=== PATIENT | female | born 1985 | race Caucasian/White ===

== ENCOUNTER 2016-11-20 07:32 | Emergency (ER) | payer OTHER ==
[2016-11-20] MEDS ORDERED: ONDANSETRON 4 MG/2 ML VIAL IVP STA (08:15)
[2016-11-20] MEDS ORDERED: SODIUM CHLORIDE 0.9% 1,000 ML IV STA ×2 (08:15)
[2016-11-20] MEDS ORDERED: DICYCLOMINE 10 MG/ML 2 ML AMP IM STA (08:16)
--- NOTE | 2016-11-20 08:24 | ED ---
General Adult HPI - General Chief complaint: Nausea/Vomiting/Diarrhea Stated complaint: vomiting Time Seen by Provider: 11/20/16 08:12 Source: patient, RN notes reviewed Mode of arrival: ambulatory Limitations: no limitations - History of Present Illness Initial comments: Patient 31-year-old female who presents emergency room today with a chief complaint of symptoms of nausea vomiting diarrhea that started approximate 4 days ago. She does admit that several people at work Similar symptoms. Patient denies any signs of blood in the stool or emesis. Does admit to feeling somewhat weak and run down. Patient does admit to abdominal pain located in the lower abdomen. Denies any other complaints or symptoms currently. Patient denies any recent fever, chills, shortness of breath, chest pain, back pain, numbness or tingling, dysuria or hematuria, constipation, headaches or visual changes, or any other complaints. - Related Data Home Medications Medication Instructions Recorded Confirmed Lisdexamfetamine Dimesylate 70 mg PO QAM 11/20/16 11/20/16 [Vyvanse] Previous Rx's Medication Instructions Recorded Dicyclomine [Bentyl] 20 mg PO QID #20 tablet 11/20/16 Ondansetron Odt [Zofran ODT] 4 mg PO Q8HR PRN #15 tab 11/20/16 Allergies Allergy/AdvReac Type Severity Reaction Status Date / Time No Known Allergies Allergy Verified 11/20/16 08:10 Review of Systems ROS Statement: Those systems with pertinent positive or pertinent negative responses have been documented in the HPI. ROS Other: All systems not noted in ROS Statement are negative. Past Medical History Past Medical History: No Reported History History of Any Multi-Drug Resistant Organisms: None Reported Past Surgical History: Tubal Ligation Past Psychological History: No Psychological Hx Reported Smoking Status: Current every day smoker Past Alcohol Use History: None Reported Past Drug Use History: None Reported General Exam - General Exam Comments Initial Comments: General: The patient is awake and alert, in no distress, and does not appear acutely ill. Eye: Pupils are equal, round and reactive to light, extra-ocular movements are intact. No nystagmus. There is normal conjunctiva bilaterally. No signs of icterus. Ears, nose, mouth and throat: There are moist mucous membranes and no oral lesions. Neck: The neck is supple, there is no tenderness or JVD. Cardiovascular: There is a regular rate and rhythm. No murmur, rub or gallop is appreciated. Respiratory: Lungs are clear to auscultation, respirations are non-labored, breath sounds are equal. No wheezes, stridor, rales, or rhonchi. Gastrointestinal: Normal appearance of the abdomen. Normal bowel sounds. Abdomen soft on palpation. Patient has mild tenderness lower abdomen and epigastric. No rebound tenderness. No guarding. No CVA tenderness. Musculoskeletal: Normal ROM, no tenderness. Strength 5/5. Sensation intact. Pulses equal bilaterally 2+. Neurological: A&O x 3. CN II-XII intact, There are no obvious motor or sensory deficits. Coordination appears grossly intact. Speech is normal. Skin: Skin is warm and dry and no rashes or lesions are noted. Psychiatric: Cooperative, appropriate mood & affect, normal judgment. Limitations: no limitations Course Vital Signs 11/20/16 07:34 Temperature 97.7 F Pulse Rate 72 Respiratory 16 Rate Blood Pressure 119/70 O2 Sat by Pulse 99 Oximetry Medical Decision Making - Medical Decision Making The patient's labs reviewed are unremarkable. Patient's x-ray is nonspecific. Patient feeling better after medications given here in the emergency room. Will be discharged home continued on Zofran and Bentyl for her symptoms. Advised increased fluids. Advised return if any symptoms increase or worsen or for any other concerns. - Lab Data Result diagrams: 11/20/16 08:23 11/20/16 08:23 Lab Results 11/20/16 11/20/16 11/20/16 Range/Units 08:23 08:23 08:23 WBC 7.7 (3.8-10.6) k/uL RBC 5.02 (3.80-5.40) m/uL Hgb 14.8 (11.4-16.0) gm/dL Hct 45.4 (34.0-46.0) % MCV 90.4 (80.0-100.0) fL MCH 29.6 (25.0-35.0) pg MCHC 32.7 (31.0-37.0) g/dL RDW 12.4 (11.5-15.5) % Plt Count 296 (150-450) k/uL Neutrophils % 63 % Lymphocytes % 28 % Monocytes % 6 % Eosinophils % 1 % Basophils % 1 % Neutrophils # 4.8 (1.3-7.7) k/uL Lymphocytes # 2.1 (1.0-4.8) k/uL Monocytes # 0.5 (0-1.0) k/uL Eosinophils # 0.1 (0-0.7) k/uL Basophils # 0.1 (0-0.2) k/uL Sodium 143 (137-145) mmol/L Potassium 4.2 (3.5-5.1) mmol/L Chloride 105 (98-107) mmol/L Carbon Dioxide 27 (22-30) mmol/L Anion Gap 11 mmol/L BUN 9 (7-17) mg/dL Creatinine 0.71 (0.52-1.04) mg/dL Est GFR (MDRD) Af Amer >60 (>60 ml/min/1.73 sqM) Est GFR (MDRD) Non-Af >60 (>60 ml/min/1.73 sqM) Glucose 90 (74-99) mg/dL Calcium 9.8 (8.4-10.2) mg/dL Total Bilirubin 0.3 (0.2-1.3) mg/dL AST 20 (14-36) U/L ALT 30 (9-52) U/L Alkaline Phosphatase 62 (38-126) U/L Total Protein 7.1 (6.3-8.2) g/dL Albumin 4.2 (3.5-5.0) g/dL Amylase 46 (30-110) U/L Lipase 157 (23-300) U/L Urine Color Urine Appearance (Clear) Urine pH (5.0-8.0) Ur Specific [place] (1.001-1.035) Urine Protein (Negative) Urine Glucose (UA) (Negative) Urine Ketones (Negative) Urine Blood (Negative) Urine Nitrate (Negative) Urine Bilirubin (Negative) Urine Urobilinogen (<2.0) mg/dL Ur Leukocyte Esterase (Negative) Ur Squamous Epith Cells (0-4) /hpf Urine Mucus (None) /hpf Urine HCG, Qual Not Detected (Not Detectd) 11/20/16 Range/Units 08:23 WBC (3.8-10.6) k/uL RBC (3.80-5.40) m/uL Hgb (11.4-16.0) gm/dL Hct (34.0-46.0) % MCV (80.0-100.0) fL MCH (25.0-35.0) pg MCHC (31.0-37.0) g/dL RDW (11.5-15.5) % Plt Count (150-450) k/uL Neutrophils % % Lymphocytes % % Monocytes % % Eosinophils % % Basophils % % Neutrophils # (1.3-7.7) k/uL Lymphocytes # (1.0-4.8) k/uL Monocytes # (0-1.0) k/uL Eosinophils # (0-0.7) k/uL Basophils # (0-0.2) k/uL Sodium (137-145) mmol/L Potassium (3.5-5.1) mmol/L Chloride (98-107) mmol/L Carbon Dioxide (22-30) mmol/L Anion Gap mmol/L BUN (7-17) mg/dL Creatinine (0.52-1.04) mg/dL Est GFR (MDRD) Af Amer (>60 ml/min/1.73 sqM) Est GFR (MDRD) Non-Af (>60 ml/min/1.73 sqM) Glucose (74-99) mg/dL Calcium (8.4-10.2) mg/dL Total Bilirubin (0.2-1.3) mg/dL AST (14-36) U/L ALT (9-52) U/L Alkaline Phosphatase (38-126) U/L Total Protein (6.3-8.2) g/dL Albumin (3.5-5.0) g/dL Amylase (30-110) U/L Lipase (23-300) U/L Urine Color Light Yellow Urine Appearance Cloudy H (Clear) Urine pH 6.5 (5.0-8.0) Ur Specific [place] 1.005 (1.001-1.035) Urine Protein Negative (Negative) Urine Glucose (UA) Negative (Negative) Urine Ketones Negative (Negative) Urine Blood Negative (Negative) Urine Nitrate Negative (Negative) Urine Bilirubin Negative (Negative) Urine Urobilinogen <2.0 (<2.0) mg/dL Ur Leukocyte Esterase Negative (Negative) Ur Squamous Epith Cells 8 H (0-4) /hpf Urine Mucus Rare H (None) /hpf Urine HCG, Qual (Not Detectd) Disposition Clinical Impression: Nausea vomiting and diarrhea Disposition: HOME SELF-CARE Condition: Good Instructions: Acute Nausea and Vomiting (ED), Acute Diarrhea (ED) Additional Instructions: Please use medication as prescribed. Please increase oral fluids. Please follow-up the family doctor over the next 2 days or return here to the emergency room if any symptoms increase worsen or for any other concerns. Prescriptions: Dicyclomine [Bentyl] 20 mg PO QID #20 tablet Ondansetron Odt [Zofran ODT] 4 mg PO Q8HR PRN #15 tab PRN Reason: Nausea Referrals: Fabiola Ruffin MD [Primary Care Provider] - 1-2 days Time of Disposition: 09:00
[2016-11-20 08:45] LABS: Basophils # (A) 0.1 k/uL (0-0.2); Basophils % (A) 1 %; CH 30.5; CHCM 33.9; Eosinophils # (A) 0.1 k/uL (0-0.7); Eosinophils % (A) 1 %; HCT 45.4 % (34.0-46.0); HDW 2.33; HGB 14.8 gm/dL (11.4-16.0); Luc # (Auto) 0.09; Luc % (Auto) 1; Lymphocytes # (A) 2.1 k/uL (1.0-4.8); Lymphocytes % (A) 28 %; MCH 29.6 pg (25.0-35.0); MCHC 32.7 g/dL (31.0-37.0); MCV 90.4 fL (80.0-100.0); Mean Platelet Volume 7.7; Monocytes # (A) 0.5 k/uL (0-1.0); Monocytes % (A) 6 %; Neutrophils # (A) 4.8 k/uL (1.3-7.7); Neutrophils % (A) 63 %; RBC 5.02 m/uL (3.80-5.40); RDW 12.4 % (11.5-15.5); WBC 7.7 k/uL (3.8-10.6); WBC (Perox) 7.61
[2016-11-20 08:49] LABS: Appearance,Urine Cloudy (Clear); Bilirubin,Urine Negative (Negative); Glucose,Urine (UA) Negative (Negative); Ketones,Urine Negative (Negative); Leukocyte Esterase,Urine Negative (Negative); Mucus,Urine Rare /hpf; Nitrite,Urine Negative (Negative); PH, Urine 6.5 (5.0-8.0); Particle Count 7021; Protein,Urine Negative (Negative); Specific Gravity,Urine 1.005 (1.001-1.035); Squamous Epithelial Cell,Urine 8 /hpf (0-4); UA Billing (MACRO vs. MICRO) MICRO; Urobilinogen,Urine <2.0 mg/dL (<2.0)
[2016-11-20 08:54] LABS: ALT 30 U/L (9-52); AST 20 U/L (14-36); Alkaline Phosphatase 62 U/L (38-126); Amylase 46 U/L (30-110); Anion Gap 11 mmol/L; Blood Urea Nitrogen 9 mg/dL (7-17); Calcium 9.8 mg/dL (8.4-10.2); Carbon Dioxide 27 mmol/L (22-30); Chloride 105 mmol/L (98-107); Glucose 90 mg/dL (74-99); Non-African American GFR(MDRD) >60 (>60 ml/min/1.73 sqM); Potassium 4.2 mmol/L (3.5-5.1); Sodium 143 mmol/L (137-145); Total Bilirubin 0.3 mg/dL (0.2-1.3); Total Protein 7.1 g/dL (6.3-8.2)
--- NOTE | 2016-11-20 09:12 | XR ---
EXAMINATION TYPE: XR KUB DATE OF EXAM: 11/20/2016 9:03 AM COMPARISON: NONE HISTORY: Nausea and vomiting FINDINGS: The osseous structures are intact. The bowel gas pattern is nonspecific. Lung bases are clear. IMPRESSION: 1. Nonspecific abdomen.
[2016-11-20 09:16] VITALS: BP 110/66; PULSE 62; RESP 20; TEMP 97.3
== END 2016-11-20 09:15 | disposition home or self-care (01) ==
LOC: EC 07:32
DX: R11.2 Nausea with vomiting, unspecified (principal); R19.7 Diarrhea, unspecified; R10.30 Lower abdominal pain, unspecified; R53.1 Weakness; F17.200 Nicotine dependence, unspecified, uncomplicated; Z79.899 Other long term (current) drug therapy
CPT/HCPCS: 36415; 80053; 82150; 83690; 85025; 81001; 81025; 74000; 99284; 96374; 96361; 96372; J0500; J2405

== ENCOUNTER 2022-04-11 13:02 | Emergency (ER) | payer OTHER ==
[2022-04-11] MEDS ORDERED: SODIUM CHLORIDE 0.9% 1,000 ML IV STA (14:03)
--- NOTE | 2022-04-11 14:08 | ED ---
Medical Decision Making - Medical Decision Making Medical screening exam: 36-year-old female presents to the emergency department for feeling unwell. Patient states that 2 days ago she was working outside. Patient works outdoors. States that that they was very hot. She began experiencing symptoms of what she reports as heat exhaustion. Her symptoms she reported a feeling unwell, lightheaded and having vague epigastric abdominal pain. The following day she may need to experience symptoms. She contacted her primary care doctor however was unable to get an appointment and instead was instructed to come to the emergency department. She was instructed by her PCPs office to come to the ER to get IV fluids and to get checked out. Brief focused physical examination shows normal-appearing female no acute distress. Patient does not appear to be dyspneic. She does not have any gross neurologic abnormalities. Patient is negative Cervantes sign. She does have some mild palpatory tenderness to the epigastric area. Laboratory blood work, urinalysis and IV fluids ordered. A medical screening exam was performed and at this time the patient does not have an emergency medical condition that requires immediate intervention. The patient is currently hemodynamically stable and should wait for a complete history and physical and appropriate diagnostic testing. - Lab Data Result diagrams: 04/11/22 14:16 04/11/22 14:16 Disposition Clinical Impression: Dehydration Disposition: HOME SELF-CARE Condition: Stable Instructions (If sedation given, give patient instructions): Acute Nausea and Vomiting (ED) Additional Instructions: Please follow-up with primary care physician in the next couple days for recheck. Return for not tolerating fluids, pain, fever, weakness, racing heartbeat, worsening or changing symptoms or other concerns. Is patient prescribed a controlled substance at d/c from ED?: No Referrals: Fabiola Ruffin MD [Primary Care Provider] - 1-2 days
[2022-04-11 14:09] VITALS: BP 143/92; PULSE 82; RESP 18; TEMP 98.6
[2022-04-11 14:46] LABS: Appearance,Urine Cloudy (Clear); Bilirubin,Urine Negative (Negative); Blood,Urine Negative (Negative); Color,Urine Colorless; Glucose,Urine (UA) Negative (Negative); Ketones,Urine Negative (Negative); Leukocyte Esterase,Urine Trace (Negative); Mucus,Urine Rare /hpf; Nitrite,Urine Negative (Negative); PH, Urine 6.5 (5.0-8.0); Protein,Urine Negative (Negative); RBC,Urine 3 /hpf (0-5); Specific Gravity,Urine 1.005 (1.001-1.035); Squamous Epithelial Cell,Urine 8 /hpf (0-4); Urobilinogen,Urine <2.0 mg/dL (<2.0); WBC,Urine 2 /hpf (0-5)
[2022-04-11 14:49] LABS: Basophils # (A) 0.1 k/uL (0-0.2); Basophils % (A) 1 %; Eosinophils # (A) 0.1 k/uL (0-0.7); Eosinophils % (A) 1 %; HCT 41.8 % (34.0-46.0); Lymphocytes # (A) 2.5 k/uL (1.0-4.8); Lymphocytes % (A) 30 %; MCH 30.5 pg (25.0-35.0); MCHC 33.5 g/dL (31.0-37.0); MCV 91.3 fL (80.0-100.0); Mean Platelet Volume 7.3; Monocytes # (A) 0.3 k/uL (0-1.0); Monocytes % (A) 4 %; Neutrophils # (A) 5.4 k/uL (1.3-7.7); Neutrophils % (A) 64 %; Platelet Count 270 k/uL (150-450); RBC 4.58 m/uL (3.80-5.40); RDW 12.4 % (11.5-15.5); WBC 8.5 k/uL (3.8-10.6)
[2022-04-11 14:59] LABS: ALT 15 U/L (4-34); AST 22 U/L (14-36); African American GFR (CKD) >90 (>60 ml/min/1.73 sqM); Albumin 4.3 g/dL (3.5-5.0); Alkaline Phosphatase 59 U/L (38-126); Anion Gap 5 mmol/L; Blood Urea Nitrogen 12 mg/dL (7-17); Calcium 9.1 mg/dL (8.4-10.2); Carbon Dioxide 24 mmol/L (22-30); Chloride 109 mmol/L (98-107); Creatine Kinase 158 U/L (30-135); Glucose 88 mg/dL (74-99); Lipase 130 U/L (23-300); Non-African American GFR(CKD) >90 (>60 ml/min/1.73 sqM); Sodium 138 mmol/L (137-145); Total Bilirubin 0.3 mg/dL (0.2-1.3); Total Protein 6.9 g/dL (6.3-8.2)
[2022-04-11] MEDS ORDERED: ONDANSETRON 4 MG ODT STARTER PACK 2 TAB BTL PO STA (15:28)
--- NOTE | 2022-04-11 15:35 | ED ---
General Adult HPI - General Chief complaint: Nausea/Vomiting/Diarrhea Stated complaint: Dehydration Time Seen by Provider: 04/11/22 15:12 Source: patient, RN notes reviewed Mode of arrival: ambulatory Limitations: no limitations - History of Present Illness Initial comments: Patient is a pleasant 36-year-old female presenting to the emergency department with not feeling well with concerns for heat exhaustion. Patient was outside 2 days ago working in the heat. Patient did have some palpitations and did vomit once. Patient has been fatigued since that time. Patient tried to get to see her doctor today however they cannot get around so they advised her to come the emergency department. Patient does request a work note. Patient was originally seen by Dr. Gonzalez ordered fluids. Patient does not feel this is necessary and wants to be discharged. A austin refuses IV fluids at this time. EKG also offered and patient also refuses this. Patient denies possible stating she has had previous tubal ligation. - Related Data Home Medications Medication Instructions Recorded Confirmed Lisdexamfetamine Dimesylate 70 mg PO QAM 11/20/16 11/20/16 [Vyvanse] Previous Rx's Medication Instructions Recorded Dicyclomine [Bentyl] 20 mg PO QID #20 tablet 11/20/16 Ondansetron Odt [Zofran ODT] 4 mg PO Q8HR PRN #15 tab 11/20/16 Allergies Allergy/AdvReac Type Severity Reaction Status Date / Time No Known Allergies Allergy Verified 04/11/22 14:09 Review of Systems ROS Statement: Those systems with pertinent positive or pertinent negative responses have been documented in the HPI. ROS Other: All systems not noted in ROS Statement are negative. Constitutional: Denies: fever Eyes: Denies: eye pain ENT: Denies: ear pain Respiratory: Denies: dyspnea Cardiovascular: Denies: chest pain Gastrointestinal: Reports: nausea, vomiting (Once). Denies: abdominal pain Genitourinary: Denies: dysuria Musculoskeletal: Denies: back pain Skin: Denies: lesions Past Medical History Past Medical History: No Reported History History of Any Multi-Drug Resistant Organisms: None Reported Past Surgical History: Tubal Ligation Past Psychological History: No Psychological Hx Reported Smoking Status: Current every day smoker Past Alcohol Use History: None Reported Past Drug Use History: None Reported General Exam Limitations: no limitations General appearance: alert, in no apparent distress Head exam: Present: normocephalic Eye exam: Present: normal appearance Neck exam: Present: normal inspection Respiratory exam: Present: normal lung sounds bilaterally Cardiovascular Exam: Present: regular rate, normal rhythm GI/Abdominal exam: Present: soft, normal bowel sounds. Absent: distended, tenderness, guarding, rebound, rigid, pulsatile mass Extremities exam: Present: normal inspection Neurological exam: Present: alert Psychiatric exam: Present: normal affect, normal mood Skin exam: Present: normal color Course Vital Signs 04/11/22 14:04 Temperature 98.6 F Pulse Rate 82 Respiratory 18 Rate Blood Pressure 143/92 O2 Sat by Pulse 98 Oximetry Medical Decision Making - Lab Data Result diagrams: 04/11/22 14:16 04/11/22 14:16 Lab Results 04/11/22 04/11/22 04/11/22 Range/Units 14:14 14:16 14:16 WBC 8.5 (3.8-10.6) k/uL RBC 4.58 (3.80-5.40) m/uL Hgb 14.0 (11.4-16.0) gm/dL Hct 41.8 (34.0-46.0) % MCV 91.3 (80.0-100.0) fL MCH 30.5 (25.0-35.0) pg MCHC 33.5 (31.0-37.0) g/dL RDW 12.4 (11.5-15.5) % Plt Count 270 (150-450) k/uL MPV 7.3 Neutrophils % 64 % Lymphocytes % 30 % Monocytes % 4 % Eosinophils % 1 % Basophils % 1 % Neutrophils # 5.4 (1.3-7.7) k/uL Lymphocytes # 2.5 (1.0-4.8) k/uL Monocytes # 0.3 (0-1.0) k/uL Eosinophils # 0.1 (0-0.7) k/uL Basophils # 0.1 (0-0.2) k/uL Sodium 138 (137-145) mmol/L Potassium 4.0 (3.5-5.1) mmol/L Chloride 109 H (98-107) mmol/L Carbon Dioxide 24 (22-30) mmol/L Anion Gap 5 mmol/L BUN 12 (7-17) mg/dL Creatinine 0.74 (0.52-1.04) mg/dL Est GFR (CKD-EPI)AfAm >90 (>60 ml/min/1.73 sqM) Est GFR (CKD-EPI)NonAf >90 (>60 ml/min/1.73 sqM) Glucose 88 (74-99) mg/dL Calcium 9.1 (8.4-10.2) mg/dL Total Bilirubin 0.3 (0.2-1.3) mg/dL AST 22 (14-36) U/L ALT 15 (4-34) U/L Alkaline Phosphatase 59 (38-126) U/L Creatine Kinase 158 H (30-135) U/L Total Protein 6.9 (6.3-8.2) g/dL Albumin 4.3 (3.5-5.0) g/dL Lipase 130 (23-300) U/L Urine Color Colorless Urine Appearance Cloudy H (Clear) Urine pH 6.5 (5.0-8.0) Ur Specific [place] 1.005 (1.001-1.035) Urine Protein Negative (Negative) Urine Glucose (UA) Negative (Negative) Urine Ketones Negative (Negative) Urine Blood Negative (Negative) Urine Nitrite Negative (Negative) Urine Bilirubin Negative (Negative) Urine Urobilinogen <2.0 (<2.0) mg/dL Ur Leukocyte Esterase Trace H (Negative) Urine RBC 3 (0-5) /hpf Urine WBC 2 (0-5) /hpf Ur Squamous Epith Cells 8 H (0-4) /hpf Urine Mucus Rare H (None) /hpf Disposition Clinical Impression: Dehydration Disposition: HOME SELF-CARE Condition: Stable Instructions (If sedation given, give patient instructions): Acute Nausea and Vomiting (ED) Additional Instructions: Please follow-up with primary care physician in the next couple days for recheck. Return for not tolerating fluids, pain, fever, weakness, racing heartbeat, worsening or changing symptoms or other concerns. Is patient prescribed a controlled substance at d/c from ED?: No Referrals: Fabiola Ruffin MD [Primary Care Provider] - 1-2 days Time of Disposition: 15:34
== END 2022-04-11 16:03 | disposition home or self-care (01) ==
LOC: EC 13:02
DX: E86.0 Dehydration (principal); F17.200 Nicotine dependence, unspecified, uncomplicated
CPT/HCPCS: 36415; 80053; 82550; 83690; 85025; 81001; 99285; S0119

== ENCOUNTER 2022-08-26 12:50 | Emergency (ER) | payer OTHER ==
[2022-08-26 13:00] VITALS: BP 121/74; PULSE 68; RESP 18; TEMP 98.2
[2022-08-26] MEDS ORDERED: CYCLOBENZAPRINE 10 MG TAB PO STA (14:38)
--- NOTE | 2022-08-26 14:40 | ED ---
General Adult HPI - General Chief complaint: Extremity Problem,Nontraumatic Stated complaint: shoulder pain Time Seen by Provider: 08/26/22 13:59 Source: patient, RN notes reviewed, old records reviewed Mode of arrival: ambulatory Limitations: no limitations - History of Present Illness Initial comments: She is a 36-year-old female who presents emergency Department complaining of acute on chronic right shoulder pain. States it is hurting her again worsening over the last week. Was seen 1 month ago for similar complaints in an urgent care and x-rays were obtained. There were negative. She states no trauma to the shoulder but does have a history of softball, and also list of the objects at work. States this does make it hurt more. States the pain is worse with movement especially lifting her shoulder above 90. Denies any wu deficits in terms of sensory deficits but does endorse some occasional tingling of the fingertips. States the pain is primarily in the right shoulder and will occasionally shoot down her to her right hand. Also has a history of bulging disks in her cervical spine. Denies much radiation from her neck down mostly from the shoulder down. States she has not followed up with any specialist. Was going to follow up with her primary care doctor today but not getting much/presents here today. States she did receive a steroid last time which should help with pain but it has return. - Related Data Home Medications Medication Instructions Recorded Confirmed Lisdexamfetamine Dimesylate 70 mg PO QAM 11/20/16 11/20/16 [Vyvanse] Previous Rx's Medication Instructions Recorded Dicyclomine [Bentyl] 20 mg PO QID #20 tablet 11/20/16 Ondansetron Odt [Zofran ODT] 4 mg PO Q8HR PRN #15 tab 11/20/16 Cyclobenzaprine [Flexeril] 10 mg PO BID PRN 7 Days #14 tab 08/26/22 Allergies Allergy/AdvReac Type Severity Reaction Status Date / Time peach Allergy Rash/Hives Verified 08/26/22 12:59 Review of Systems ROS Statement: Those systems with pertinent positive or pertinent negative responses have been documented in the HPI. Review of Systems: CONST: Denies fever EYES: Denies blurry vision ENT: Denies nasal congestion C/V: Denies Chest pain RESP: Denies shortness of breath GI: Denies abdominal pain : Denies dysuria SKIN: Denies rash. MSK: Endorses right shoulder pain NEURO: Denies headache ROS Other: All systems not noted in ROS Statement are negative. Past Medical History Past Medical History: No Reported History History of Any Multi-Drug Resistant Organisms: None Reported Past Surgical History: Tubal Ligation Past Psychological History: No Psychological Hx Reported Smoking Status: Current every day smoker Past Alcohol Use History: None Reported Past Drug Use History: None Reported General Exam - General Exam Comments Initial Comments: General: Appears in no acute distress. HEAD: Normal with no signs of head trauma. EYES: EOMI ENT: Hearing grossly intact, normal oropharynx. RESPIRATORY: Clear breath sounds bilaterally. C/V: Peripheral pulses 2+ intact throughout. ABD: Nondistended EXT: Patient's right before meals joint tenderness to palpation as well as right shoulder generalized tenderness to palpation. Difficulty with range of motion of the right shoulder particularly with moving the right shoulder above 90. SKIN: No rashes or lesions observed on exposed skin. NEURO: Alert and oriented 4. No focal deficits. Limitations: no limitations Course Vital Signs 08/26/22 12:57 Temperature 98.2 F Pulse Rate 68 Respiratory 18 Rate Blood Pressure 121/74 O2 Sat by Pulse 100 Oximetry Medical Decision Making - Medical Decision Making Based on the patient's presentation and physical exam, patient presents for acute on chronic right shoulder pain. I suspect a rotator cuff injury to the right shoulder. She has been having this pain that is somewhat chronic. We did discuss obtaining a repeat x-ray because there is been no recent trauma or injury, we both agree that this is likely yield low yield. She likely requires ultrasound or MRI of the right shoulder. I recommended she follow up with her primary care physician which she can tomorrow. She can obtain a referral for orthopedics tomorrow. She was in agreement this plan. In the meantime she'll receive a dose of steroids and a muscle relaxer. She also be given a sling. Vital signs within acceptable limits. She was in agreement this plan. I will provide the patient with a prescription for Flexeril. I instructed the patient to follow up with their PCP in the next 1-3 days. I explained that the patient should return to the emergency department if they experience any worsening symptoms. Strict return precautions were discussed with the patient. The patient expressed understanding of these instructions. I answered all questions that the patient had. The patient was discharged home in good condition with their prescriptions and follow up information. Disposition Clinical Impression: Right shoulder strain Disposition: HOME SELF-CARE Condition: Good Instructions (If sedation given, give patient instructions): Rotator Cuff Injury (ED) Prescriptions: Cyclobenzaprine [Flexeril] 10 mg PO BID PRN 7 Days #14 tab PRN Reason: Pain Is patient prescribed a controlled substance at d/c from ED?: No Referrals: Fabiola Ruffin MD [Primary Care Provider] - 1-2 days Time of Disposition: 14:25
[2022-08-26] MEDS ORDERED: DEXAMETHASONE SOD PHOSPHATE 4 MG/ML 1 ML VIAL IM STA (14:48)
== END 2022-08-26 15:04 | disposition home or self-care (01) ==
LOC: EC 12:50
DX: S46.911A Strain of unspecified muscle, fascia and tendon at shoulder and upper arm level, right arm, initial encounter (principal); F17.200 Nicotine dependence, unspecified, uncomplicated
CPT/HCPCS: 99283; 96372; J1100

== ENCOUNTER 2023-05-13 11:00 | Emergency (ER) | payer OTHER ==
[2023-05-13 11:09] VITALS: TEMP 98.2
[2023-05-13] MEDS ORDERED: OFLOXACIN 0.3% OPHTH DROPS 5 ML BOTTLE RIGHT EAR STA (11:48)
[2023-05-13] MEDS ORDERED: IBUPROFEN 600 MG TAB PO STA (11:49)
[2023-05-13] MEDS ORDERED: ACET/COD 300 MG/30 MG STARTER PACK 6 TAB BTL PO STA (11:50)
[2023-05-13] MEDS ORDERED: AMOXIC-POT CLAV 875-125MG 1 EACH TAB PO STA (11:51)
[2023-05-13] MEDS ORDERED: KETOROLAC 15 MG/ML 1 ML VIAL IM STA (11:51)
--- NOTE | 2023-05-13 12:29 | ED ---
ENT HPI - General Chief complaint: ENT Stated complaint: ENT Time Seen by Provider: 05/13/23 11:33 Source: patient Mode of arrival: ambulatory Limitations: no limitations - History of Present Illness Initial comments: Patient is a 37-year-old female who presents to the emergency Department for right ear pain. Patient had her ears flushed on Thursday for cerumen impaction. On Thursday she began having right ear pain. Patient reports consistent pain and drainage from the right ear. She denies injury, recent swimming. She does report intermittent fever. Denies nausea and vomiting. - Related Data Home Medications Medication Instructions Recorded Confirmed Lisdexamfetamine Dimesylate 70 mg PO QAM 11/20/16 11/20/16 [Vyvanse] Previous Rx's Medication Instructions Recorded Dicyclomine [Bentyl] 20 mg PO QID #20 tablet 11/20/16 Ondansetron Odt [Zofran ODT] 4 mg PO Q8HR PRN #15 tab 11/20/16 Cyclobenzaprine [Flexeril] 10 mg PO BID PRN 7 Days #14 tab 08/26/22 Amoxic-Pot Clav 875-125Mg 1 tab PO BID #20 tab 05/13/23 [Augmentin 875-125] Ibuprofen [Motrin] 600 mg PO Q6HR PRN #30 tab 05/13/23 Allergies Allergy/AdvReac Type Severity Reaction Status Date / Time peach Allergy Rash/Hives Verified 05/13/23 11:09 Review of Systems ROS Statement: Those systems with pertinent positive or pertinent negative responses have been documented in the HPI. ROS Other: All systems not noted in ROS Statement are negative. Past Medical History Past Medical History: No Reported History History of Any Multi-Drug Resistant Organisms: None Reported Past Surgical History: Tubal Ligation Past Psychological History: No Psychological Hx Reported Smoking Status: Current every day smoker Past Alcohol Use History: None Reported Past Drug Use History: None Reported General Exam Limitations: no limitations General appearance: alert Eye exam: Present: normal appearance, PERRL, EOMI ENT exam: Present: normal oropharynx, other (significant swelling of right external canal drainage. No blood. Cannot visualize tympanic membrane. No mastoid tenderness. Left tympanic membrane and external canal and normal- appearing ) Neck exam: Present: lymphadenopathy (left parotid ) Respiratory exam: Present: normal lung sounds bilaterally. Absent: respiratory distress, wheezes, rales, rhonchi, stridor Cardiovascular Exam: Present: regular rate, normal rhythm, normal heart sounds. Absent: systolic murmur, diastolic murmur, rubs, gallop, clicks Neurological exam: Present: alert Psychiatric exam: Present: normal affect, normal mood Skin exam: Present: warm, dry, intact, normal color. Absent: rash Course Vital Signs 05/13/23 05/13/23 11:07 13:00 Temperature 98.2 F 98.2 F Pulse Rate 85 64 Respiratory 20 16 Rate Blood Pressure 127/82 125/90 O2 Sat by Pulse 99 97 Oximetry Medical Decision Making - Medical Decision Making Was pt. sent in by a medical professional or institution ([facility] Davis, [employer], urgent care, hospital, or fci...) When possible be specific @ -No Did you speak to anyone other than the patient for history (EMS, parent, family, police, friend...)? What history was obtained from this source @ -No Did you review nursing and triage notes (agree or disagree)? Why? @ -I reviewed and agree with nursing and triage notes Were old charts reviewed (outside hosp., previous admission, EMS record, old EKG, old radiological studies, urgent care reports/EKG's, fci records)? Report findings @ -No old charts were reviewed Differential Diagnosis (chest pain, altered mental status, abdominal pain women, abdominal pain men, vaginal bleeding, weakness, fever, dyspnea, syncope, headache, dizziness, GI bleed, back pain, seizure, CVA, palpatations, mental health)? @ -Otitis media, otitis externa, tympanic membrane perforation EKG interpreted by me (3pts min.). @ -As above X-rays interpreted by me (1pt min.). @ -None done CT interpreted by me (1pt min.). @ -None done U/S interpreted by me (1pt. min.). @ -None done What testing was considered but not performed or refused? (CT, X-rays, U/S, labs)? Why? @ -None What meds were considered but not given or refused? Why? @ -None Did you discuss the management of the patient with other professionals (professionals i.e. ADRIENNE Davis, [employer], lab, RT, psych nurse, manager social services, animal tech, teacher, chief communications officer, family caseworker)? Give summary @ -No Was smoking cessation discussed for >3mins.? @ -No Was critical care preformed (if so, how long)? @ -No Were there social determinants of health that impacted care today? How? (Homelessness, low income, unemployed, alcoholism, drug addiction, transportation, low edu. Level, literacy, decrease access to med. care, prison, rehab)? @ -No Was there de-escalation of care discussed even if they declined (Discuss DNR or withdrawal of care, Hospice)? DNR status @ -No What co-morbidities impacted this encounter? (DM, HTN, Smoking, COPD, CAD, Cancer, CVA, ARF, Chemo, Hep., AIDS, mental health diagnosis, sleep apnea, morbid obesity)? @ -None Was patient admitted / discharged? Hospital course, mention meds given and route, prescriptions, significant lab abnormalities, going to OR and other pertinent info. @ -Patient presenting with severe otitis externa of the right ear. Unable to visualize the right tympanic membrane. Patient recently on amoxicillin for dental procedure. She'll be placed on Augmentin as well as antibiotic drops. Wick was placed into the right ear prior to drops. We discussed treatment at home in detail. Patient referred to ENT. Return parameters discussed. Undiagnosed new problem with uncertain prognosis? @ -No Drug Therapy requiring intensive monitoring for toxicity (Heparin, Nitro, Insulin, Cardizem)? @ -No Were any procedures done? @ -No] Diagnosis/symptom? @ -acute otitis externa right ear Acute, or Chronic, or Acute on Chronic? @ -acute Uncomplicated (without systemic symptoms) or Complicated (systemic symptoms)? @ -uncomplicated Side effects of treatment? @ -[No] Exacerbation, Progression, or Severe Exacerbation? @ -[No] Poses a threat to life or bodily function? How? (Chest pain, [place], CA, pneumonia, PE, COPD, DKA, ARF, appy, cholecystitis, CVA, Diverticulitis, Homicidal, Suicidal, threat to staff... and all critical care pts) @ -[No] Dr. Arias is my attending Disposition Clinical Impression: Acute otitis externa of right ear Disposition: HOME SELF-CARE Condition: Good Instructions (If sedation given, give patient instructions): Ear Infection (ED), Earache (ED) Additional Instructions: Take oral antibiotic as directed. Apply 5 antibiotic drops to the right ear every 12 hours for 10 days. Alternate Tylenol and Motrin every 3-4 hours for pain. Save Tylenol 3 for severe pain. Follow-up with ENT specialist in 1-2 days. Return to the emergency department if you experience new, concerning, or worsening symptoms. Prescriptions: Amoxic-Pot Clav 875-125Mg [Augmentin 875-125] 1 tab PO BID #20 tab Ibuprofen [Motrin] 600 mg PO Q6HR PRN #30 tab PRN Reason: Pain Is patient prescribed a controlled substance at d/c from ED?: No Referrals: None,Stated [Primary Care Provider] - 1-2 days Esteban Breaux MD [STAFF PHYSICIAN] - 1-2 days
[2023-05-13 13:02] VITALS: BP 125/90; PULSE 64; RESP 16
== END 2023-05-13 13:02 | disposition home or self-care (01) ==
LOC: EC 11:00
DX: H60.501 Unspecified acute noninfective otitis externa, right ear (principal); F17.200 Nicotine dependence, unspecified, uncomplicated; Z91.048 Other nonmedicinal substance allergy status
CPT/HCPCS: 99283; 96372; J1885